=== PATIENT | female | born 1995 | race American Indian/Alaskan Native ===

== ENCOUNTER 2017-08-12 10:40 | Emergency (ER) | payer OTHER ==
[2017-08-12 11:23] VITALS: BP 125/91
[2017-08-12] MEDS ORDERED: ULTRAM PO ONE (11:40)
[2017-08-12] MEDS ORDERED: TORADOL IM ONE (11:40)
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
== END 2017-08-12 16:26 | disposition home or self-care (01) ==
LOC: ED 10:40
DX: S50.312A Abrasion of left elbow, initial encounter (principal); R07.81 Pleurodynia; F12.90 Cannabis use, unspecified, uncomplicated; Z72.0 Tobacco use; V79.3XXA Bus occupant (driver) (passenger) injured in unspecified nontraffic accident, initial encounter; Y93.89 Activity, other specified; Y99.8 Other external cause status; Y92.488 Other paved roadways as the place of occurrence of the external cause
CPT/HCPCS: 71100; 73070; 73090; 73100; 99283; J1885